=== PATIENT | female | born 1950 | race Caucasian/White ===

== ENCOUNTER → 2016-07-03 | Outpatient (CLI) | payer OTHER | END | disposition home or self-care (01) | LOC: PCVCIMAG 09:54 | PROVIDERS: ATTEND Internal Medicine Cardiovascular Disease | DX: I71.2 Thoracic aortic aneurysm, without rupture (principal); I10 Essential (primary) hypertension; Q23.1 Congenital insufficiency of aortic valve | CPT/HCPCS: 93325; 93351 ==

== ENCOUNTER → 2017-07-02 | Outpatient (CLI) | payer MEDICARE, MEDICAID, OTHER | END | disposition home or self-care (01) | LOC: PCVCIMAG 08:28 | DX: I10 Essential (primary) hypertension (principal); I77.89 Other specified disorders of arteries and arterioles; I35.1 Nonrheumatic aortic (valve) insufficiency; Q25.49 Other congenital malformations of aorta; Z79.82 Long term (current) use of aspirin | CPT/HCPCS: 93005; 93306; G0463 ==

== ENCOUNTER → 2018-07-05 | Outpatient (CLI) | payer MEDICARE ==
--- NOTE | 2018-07-05 10:21 | PCVCIMAG ---
APPROVED REPORT Study performed: 07/05/2018 09:03:19 EXAM: Comprehensive 2D, Doppler, and color-flow Echocardiogram Patient Location: Echo lab Status: routine BSA: 2.02 HR: 65 bpmBP: 110/80 mmHg Rhythm: NSR Other Information Study Quality: Adequate Risk Factors: Cardiac Risk Factors: HTN Indications Bicuspid Aortic Valve. Dilated Ascending Aorta 2D Dimensions IVSd: 15.71 (7-11mm)LVOT Diam: 23.86 (18-24mm) LVDd: 41.73 mm PWd: 13.30 (7-11mm)Ascending Ao: 45.33 (22-36mm) LVDs: 31.87 (25-40mm) Left Atrium: 26.39 (27-40mm) Aortic Root: 40.74 mm LV Single Plane 4CH: 61.78 % LV Single Plane 2CH: 65.90 % Biplane EF: 62.7 % Volumes Left Atrial Volume (Systole) Single Plane 4CH: 38.23 mLSingle Plane 2CH: 50.22 mL LA ESV Index: 23.00 mL/m2 Aortic Valve AoV Peak Bayron.: 1.95 m/s AO Peak Gr.: 0.00 mmHgLVOT Max P.49 mmHg AO Mean Gr.: 7.46 mmHgLVOT Mean P.63 mmHg AO V2 Mean: 1.30 m/sLVOT Max V: 1.06 m/s AO V2 VTI: 41.68 cmLVOT Mean V: 0.80 m/s SIMRAN (VTI): 2.24 [id number] V1 VTI: 20.92 cm SIMRAN Vmax: 2.43 cm2 SV (LVOT): 93.48 mL Mitral Valve E/A Ratio: 78.0 MV Decel. Time: 281.08 ms MV E Max Bayron.: 0.78 m/s MV A Bayron.: 0.01 m/s IVRT: 86.51 ms TDI E/Lateral E': 11.14E/Medial E': 13.00 Medial E' Bayron.: 0.06 m/s Lateral E' Bayron.: 0.07 m/s Tricuspid Valve TR Peak Bayron.: 2.15 m/s TR Peak Gr.: 18.47 mmHg Left Ventricle The left ventricle is normal size. There is normal LV segmental wall motion. Mild concentric left ventricular hypertrophy. Left ventricular systolic function is normal. The left ventricular ejection fraction is within the normal range. LVEF is 60%. Grade I - abnormal relaxation pattern. Right Ventricle The right ventricle is normal size. The right ventricular systolic function is normal. Atria The left atrium size is normal. The right atrium size is normal. Aortic Valve Bicuspid Aortic Valve. Mild thickening. Trace aortic regurgitation. There is no aortic valvular stenosis. Mitral Valve Mitral valve leaflets are mildly thickened. There is no mitral valve regurgitation noted. No evidence of mitral valve stenosis. Tricuspid Valve The tricuspid valve is normal in structure. Trace tricuspid regurgitation. Pulmonary artery pressure is 26mmhg. Pulmonic Valve The pulmonary valve is normal in structure. There is no pulmonic valvular regurgitation. Great Vessels Aortic root is dilated. Ascending aorta is dilated measuring 4.5-4.7cm IVC is normal in size and collapses >50% with inspiration. Pericardium There is no pericardial effusion. <Conclusion> The left ventricle is normal size. Mild concentric left ventricular hypertrophy. Left ventricular systolic function is normal. Grade I - abnormal relaxation pattern. The right ventricle is normal size. The left atrium size is normal. Bicuspid Aortic Valve. Mild thickening. Trace aortic regurgitation. Mitral valve leaflets are mildly thickened. Trace tricuspid regurgitation. Pulmonary artery pressure is 26mmhg. Ascending aorta is dilated measuring 4.5-4.7cm
== END | disposition home or self-care (01) ==
LOC: PCVCIMAG 09:06
PROVIDERS: ATTEND Internal Medicine Cardiovascular Disease
DX: I10 Essential (primary) hypertension (principal); I77.819 Aortic ectasia, unspecified site; Q23.1 Congenital insufficiency of aortic valve; Z87.891 Personal history of nicotine dependence; Z79.82 Long term (current) use of aspirin
CPT/HCPCS: 36415; 80061; 93005; 93306; G0463

== ENCOUNTER → 2018-07-19 | Outpatient (CLI) | payer MEDICARE, OTHER ==
--- NOTE | 2018-07-19 17:56 | PCVCIMAG ---
EXAM: BILATERAL LOWER EXTREMITY ARTERIAL DUPLEX INDICATION: Peripheral Arterial Disease. Leg pain. FINDINGS: Right Leg: Common femoral and profunda femoral arteries are patent. Increased systolic velocity mid [place] superficial femoral artery 196 cm/s consistent with 40-50% stenosis. Popliteal artery is patent. The anterior tibial, peroneal, and posterior tibial arteries are patent. Left Leg: Common femoral and profunda femoral arteries are patent. Systolic velocity of 204 cm/s [place] left superficial femoral artery consistent with 40-50% stenosis not felt be flow-limiting. Popliteal artery is patent. 40-50% stenosis tibioperoneal trunk. The anterior tibial, peroneal, and posterior tibial arteries are patent. IMPRESSION: 40-50% stenosis [place] right and left superficial femoral arteries not felt be critically flow-limiting. Please correlate clinically for any claudication symptoms. 40-50% stenosis left tibioperoneal trunk. LOC:[id number]
== END | disposition home or self-care (01) ==
LOC: PCVCIMAG 13:24
PROVIDERS: ATTEND Internal Medicine Cardiovascular Disease
DX: I73.9 Peripheral vascular disease, unspecified (principal)
CPT/HCPCS: 93925